=== PATIENT | male | born 1960 | race Caucasian/White ===

== ENCOUNTER 2020-04-09 17:35 | Emergency (ER) | payer MEDICAID, SELFPAY ==
[2020-04-09] VITALS (19 sets, daily range): BP systolic 176–209; BP diastolic 94–117; PULSE 63–83; RESP 14–18; TEMP 36.7; O2SAT 92–100; BMI 28.8
[2020-04-09 17:58] LABS: WBC Urine None Seen (0-5/HPF)
[2020-04-09 18:09] LABS: Bacteria Urine Few (2-10); Culture Indicated Urine Cult Not Indicated; RBC Urine 1-5/HPF (0-5/HPF)
[2020-04-09] MEDS: ONDANSETRON 4 MG/2 ML INJ (18:10)
[2020-04-09] MEDS: SODIUM CHLORIDE 0.9% 1,000 ML 1000 ML IV (18:10)
[2020-04-09] MEDS: MORPHINE 4 MG/ML INJ (18:10)
--- NOTE | 2020-04-09 18:11 | DI.CT.S_ITS ---
PROCEDURE: CT ANGIO CHEST ABDOMEN PELVIS INDICATIONS: severe sudden flank pain TECHNIQUE: Precontrast 5 mm thick sections acquired from the lung apices to the iliac crests. After the administration of intravenous contrast, 2.5 mm thick sections again acquired from the lung apices to the iliac crests. Maximum intensity projection (MIP) oblique sagittal and coronal reformats were then acquired. For radiation dose reduction, the following was used: automated exposure control. COMPARISON: None. FINDINGS: Image quality: Excellent. AORTA: The thoracal abdominal aorta demonstrates no evidence of dissection, aneurysm, no significant stenosis. Mild diffuse plaque is present. CHEST: Lungs and pleura: No acute airspace opacities. There is an 8mm diameter nodule within the left lower lobe posteriorly. There is a ground glass nodule within the right upper lobe anterolaterally measuring 9 mm. Mild right basal atelectasis. No pleural effusions or pneumothorax. Central and peripheral airways are patent and normal in caliber. Mediastinum: Heart size is normal. No pericardial effusion. No mediastinal or hilar adenopathy by size criteria. Central pulmonary arteries are normal in size. Esophagus is normal in caliber. No hiatal hernias. Bones and chest wall: No axillary adenopathy by size criteria. Thyroid gland is within normal limits. No suspicious bony lesions. No vertebral body compression fractures. ABDOMEN: Vasculature: Celiac trunk and mesenteric arteries are patent. Renal arteries are also patent. Solid organs: Liver is normal in size and enhancement. Gallbladder is within normal limits. Biliary system is non dilated. Pancreas enhances normally. Spleen is normal in size and enhancement. No adrenal nodules. B mild right renal enlargement. Severe right perinephric fat stranding. Left kidney is within normal limits. No left hydronephrosis no left ureteral dilatation. Mild right hydronephrosis and right ureteral dilatation. 4 mm diameter distal right ureteral calculus with Hounsfield units of 304. Peritoneum and bowel: No free fluid or air. Bowel loops are normal in caliber and wall thickness. Nodes and vessels: No retroperitoneal or mesenteric adenopathy by size criteria. Inferior vena cava is normal in morphology. Miscellaneous: No ventral hernias. PELVIS: Genitourinary: Bladder wall thickness is normal. Miscellaneous: No inguinal hernias or adenopathy. No ventral hernias. Bones: No suspicious bony lesions. No vertebral body compression fractures. IMPRESSION: 1. Right distal ureteral calculus associated with mild right hydronephrosis. 2. Bilateral pulmonary nodules; followup is recommended as below. 3. Otherwise negative CT angiography of the chest, abdomen, and pelvis. Fleischner Society criteria for SOLID lung nodule followup. Nodule size (mm)Low-risk patientHigh-risk patient<6 (single or multiple)No routine followup.Optional CT at 12 months. 6-8 (single or multiple)CT at 6-12 months, then optional CT at 18-24 mo.CT at 6-12 months, then CT at 18-24 months. >8 (single)CT, PET-CT, or biopsy at 3 months. Same as for low-risk pts. >8 (multiple)CT at 3-6 months, then optional CT at 18-24 mo.CT at 3-6 months, then CT at 18-24 months. Fleischner Society criteria for SUB-SOLID lung nodule followup. Solitary pure ground-glass nodules<6 mm (ground glass or part solid)No followup needed. 6 mm or larger (ground glass)CT at 6-12 months to confirm persistence, then CT every 2 years until 5 years.6 mm or larger (part solid)CT at 3-6 months to confirm persistence, then annual CT until 5 years if unchanged and solid component remains <6 mm. Multiple sub-solid nodules<6 mmCT at 3-6 months, then CT consider at 2 & 4 years for high risk patients. [address] at 3-6 months. Subsequent management based on most suspicious lesions. Recommendations do not apply to lung cancer screening, patients with immunosuppression, or patients with known primary cancer. Dictated by: Terri Lyle M.D. on 04/09/2020 at 19:53 Approved by: Terri Lyle M.D. on 04/09/2020 at 19:57
[2020-04-09 18:16] LABS: Add Manual Diff / Slide Review NO; Basophils Absolute Auto 0 /uL (0-100); Basophils Percent Auto 0.4 % (0-2); Eosinophils Absolute Auto 0 /uL (0-450); Eosinophils Percent Auto 0.2 % (2-4); Hematocrit 44.5 % (41-53); Hemoglobin 15.3 g/dL (13.5-17.5); Lymphocytes Absolute Auto 1300 /uL (1100-4500); Lymphocytes Percent Auto 11.5 % (25-40); Mean Corpuscular HGB Conc 34.5 % (30-36); Mean Corpuscular Hemoglobin 30.7 PG (26-34); Monocytes Absolute Auto 600 /uL (0-900); Monocytes Percent Auto 5.6 % (3-14); Neutrophils Absolute Auto 9400 /uL (1500-7000); Neutrophils Percent Auto 82.3 % (50-75); Platelet Count 313 X10^3/uL (150-400); Red Blood Cell Count 4.99 X10^6/uL (4.5-5.9); Red Cell Distribution Width 13.2 % (11.6-14.8); White Blood Cell Count 11.4 X10^3/uL (4.5-11.0)
[2020-04-09 18:19] LABS: Lactate (Lactic Acid) 1.3 mmol/L (0.7-2.1)
[2020-04-09 18:20] LABS: Alanine Aminotransferase 36 IU/L (<50); Albumin 4.8 g/dL (3.5-5.0); Albumin Globulin Ratio 1.5 (1.0-2.8); Alkaline Phosphatase 78 U/L (38-126); Aspartate Aminotransferase 39 IU/L (17-59); BUN Creatinine Ratio 22.7 (6-22); Bilirubin Total 0.8 mg/dL (0.2-1.3); Blood Urea Nitrogen 27 mg/dL (9-20); Calcium 9.8 mg/dL (8.4-10.2); Carbon Dioxide 28 mmol/L (22-32); Chloride 100 mmol/L (98-107); Estimated Glomerular Filt Rate > 60.0 mL/min (>60); Globulin 3.2 g/dL (1.7-4.1); Glucose 125 mg/dL (70-100); HEMOLYSIS < 15 (0-50); Potassium 3.4 mmol/L (3.4-5.1); Sodium 136 mmol/L (137-145)
[2020-04-09] MEDS: HYDROMORPHONE 1 MG INJ IV ×2 (18:39→19:45)
[2020-04-09 18:45] LABS: Procalcitonin < 0.05 ng/mL (<0.5)
--- NOTE | 2020-04-09 19:42 | ED.ABDPAIN ---
HPI - Abdominal Pain <PRANAV Olivares - Last Filed: 04/09/20 21:09> General Chief Complaint: Urogenital-Male Stated Complaint: Possible Kidney Stone Time Seen by Provider: 04/09/20 17:53 Source: patient Mode of arrival: Family Vehicle Limitations: no limitations History of Present Illness HPI narrative: The patient is a 59-year-old male nonsmoker with history of Guillain-[place] as well as hypertension who presents with a chief complaint of severe sudden onset flank pain in his right side. He states it started all of a sudden, then the pain brought him to his knees. He complains of nausea, no vomiting. No fevers, no dysuria urgency or frequency. He denies any personal history of kidney stones and denies any familial history of kidney stones. He denies any hematuria he states the pain is on his left flank radiating around to his right stomach. He denies any abdominal surgical history. He does have a history of hypertension takes losartan. He did have Guillain[place] after a flu shot. The patient saw a nurse on 1 of the [facility], who gave him 5 mg of oxycodone. Then he took a fairly over, and felt nauseous on the [place] and walking up from the [place]. Related Data Home Medications Medication Instructions Recorded Confirmed losartan 50 mg PO DAILY 04/09/20 04/09/20 Previous Rx's Medication Instructions Recorded hydrocodone-acetaminophen [[place]] 1 tab PO Q4-6H PRN #10 tab 04/09/20 ketorolac 10 mg PO TID PRN #10 tab 04/09/20 ondansetron 4 mg PO Q6H PRN #20 tab 04/09/20 tamsulosin 0.4 mg PO DAILY #7 cap 04/09/20 Allergies Allergy/AdvReac Type Severity Reaction Status Date / Time No Known Drug Allergies Allergy Verified 04/09/20 18:03 Review of Systems <PRANAV Olivares - Last Filed: 04/09/20 21:09> Review of Systems Narrative: GENERAL: Denies chills, fatigue, malaise, fever, sweats. HEENT: Denies sinus pain, ear pain, sore throat, difficulty swallowing, dizziness. RESPIRATORY: Denies dyspnea, cough, wheezing, hemoptysis, sputum. CARDIOVASCULAR: Denies chest pain, palpitations, orthopnea, edema, GASTROINTESTINAL: See HPI : Denies dysuria, frequency, incontinence, hematuria, urinary retention. MUSCULOSKELETAL: denies weakness, joint pain, or bony pain SKIN: Denies rash, skin lesions, or other NEUROLOGIC: Denies weakness, headache, numbness, change in speech, confusion, seizures, incoordination. PSYCHIATRIC: No concerning psychosocial issues. 12 point review of systems is negative except for those stated above Patient History <HANNAH Olivares - Last Filed: 04/09/20 21:09> Social History Smoking Status: Never smoker Smoking Status: Never smoker alcohol intake frequency: 3 or more drinks per day Substance Use Type: does not use Exam <PRANAV Olivares - Last Filed: 04/09/20 21:09> Narrative Exam Narrative: GENERAL: This is a well-nourished, well-developed patient, appears uncomfortable HEAD: Atraumatic. Normocephalic. No temporal or scalp tenderness. EYES: Pupils equal round and reactive. Extraocular motions intact. No scleral icterus. No injection or drainage. ENT: Nose without bleeding, purulent drainage or septal hematoma. Throat without erythema, tonsillar hypertrophy or exudate. Uvula midline. Airway patent. NECK: Trachea midline. No JVD or lymphadenopathy. Supple, nontender, no meningeal signs. CARDIOVASCULAR: Regular rate and rhythm RESPIRATORY: Clear to auscultation. Breath sounds equal bilaterally. No wheezes, rales, or rhonchi. No cough. No increased respiratory effort. No accessory muscle use. GASTROINTESTINAL: Abdomen soft, diffusely tender, nondistended. No hepato-splenomegaly, or palpable masses. No guarding pain to palpation right lower quadrants. Active bowel sounds all 4 quadrants. EXTREMITIES: No clubbing, cyanosis, or edema. No joint tenderness, effusion, or edema noted. BACK: Nontender without deformity or crepitance. CVA tenderness right side. NEURO: AOx3. SKIN: No rash or erythema on visible skin Initial Vital Signs Initial Vital Signs: Vital Signs Temperature 98.1 F 04/09/20 17:58 Pulse Rate 63 04/09/20 17:58 Respiratory Rate 18 04/09/20 17:58 Blood Pressure 205/117 H 04/09/20 17:58 Pulse Oximetry 100 04/09/20 17:58 <Carlos Eduardo Gagnon DO - Last Filed: 04/09/20 21:18> Initial Vital Signs Initial Vital Signs: Vital Signs Temperature 98.1 F 04/09/20 17:58 Pulse Rate 63 04/09/20 17:58 Respiratory Rate 18 04/09/20 17:58 Blood Pressure 205/117 H 04/09/20 17:58 Pulse Oximetry 100 04/09/20 17:58 Scores <PRANAV Olivares - Last Filed: 04/09/20 21:09> GCS Aust[place] coma scale eye opening: Spontaneous Aust[place] coma scale verbal response: Orientated Aust[place] coma scale motor response: Obey commands Austen coma scale total score: 15 Course <PRANAV Olivares - Last Filed: 04/09/20 21:09> Orders Ordered: ED Orders 04/09/20 17:43 Urine Microscopic Stat 04/09/20 17:52 Complete Blood Count AUTO DIFF Stat Comprehensive Metabolic Panel Stat Lactate (Lactic Acid) Stat Procalcitonin Stat 04/09/20 18:11 CT angio chest abdomen pelvis Stat Discontinued Medications Hydrocodone Bitart/Acetaminophen (Vicodin 5/325 Prepack) 1 bottle MISC SEEINSTR ONE Stop: 04/09/20 20:25 Last Admin: 04/09/20 21:13 Dose: 1 bottle Documented by: PACHECO Hydromorphone HCl (Dilaudid) 1 mg IV NOW ONE Stop: 04/09/20 18:33 Last Admin: 04/09/20 18:39 Dose: 1 mg Documented by: DAVID Hydromorphone HCl (Dilaudid) 1 mg IV NOW ONE Stop: 04/09/20 19:42 Last Admin: 04/09/20 19:45 Dose: 1 mg Documented by: GERMAN Sodium Chloride (Normal Saline 0.9%) 1,000 mls @ 1,000 mls/hr IV BOLUS ONE Stop: 04/09/20 19:04 Last Infusion: 04/09/20 19:05 Dose: 0 mls/hr Documented by: Admin: 04/09/20 18:10 Dose: 1,000 mls/hr Documented by: DAVID Ketorolac Tromethamine (Toradol) 30 mg IV NOW ONE Stop: 04/09/20 20:02 Last Admin: 04/09/20 20:14 Dose: 30 mg Documented by: DAVID Ketorolac Tromethamine (Toradol 10mg Prepack) 1 bottle MISC SEEINSTR ONE Stop: 04/09/20 20:26 Last Admin: 04/09/20 21:13 Dose: 1 bottle Documented by: PACHECO Lidocaine (Lidoderm) 1 each TOP NOW ONE Stop: 04/09/20 19:42 Last Admin: 04/09/20 19:46 Dose: 1 each Documented by: GERMAN Ondansetron HCl (Zofran Odt Prepack) 1 bottle MISC SEEINSTR ONE Stop: 04/09/20 20:25 Last Admin: 04/09/20 21:13 Dose: 1 bottle Documented by: PACHECO Tamsulosin HCl (Flomax) 0.4 mg PO NOW ONE Stop: 04/09/20 20:25 Last Admin: 04/09/20 21:13 Dose: 0.4 mg Documented by: PACHECO Vital Signs Vital signs: Vital Signs - 8 hr 04/09/20 17:58 04/09/20 18:14 04/09/20 18:15 Temperature 98.1 F Pulse Rate 63 75 77 Respiratory Rate 18 Blood Pressure 205/117 H Pulse Oximetry 100 97 93 04/09/20 18:18 04/09/20 18:30 04/09/20 18:37 Temperature Pulse Rate 82 81 Respiratory Rate Blood Pressure 196/103 H 206/106 H Pulse Oximetry 100 100 04/09/20 18:45 04/09/20 19:00 04/09/20 19:22 Temperature Pulse Rate 75 74 Respiratory Rate Blood Pressure 192/111 H 192/101 H Pulse Oximetry 99 99 100 04/09/20 19:30 04/09/20 19:31 04/09/20 19:45 Temperature Pulse Rate 82 83 78 Respiratory Rate Blood Pressure 209/101 H 209/106 H Pulse Oximetry 100 99 99 04/09/20 20:00 04/09/20 20:15 04/09/20 20:30 Temperature Pulse Rate 78 80 80 Respiratory Rate Blood Pressure 186/102 H 176/98 H Pulse Oximetry 98 97 93 04/09/20 20:31 04/09/20 20:45 04/09/20 21:00 Temperature Pulse Rate 82 Respiratory Rate Blood Pressure 179/94 H 176/99 H Pulse Oximetry 92 94 04/09/20 21:06 Temperature Pulse Rate 83 Respiratory Rate 14 Blood Pressure Pulse Oximetry 96 <Carlos Eduardo Gagnon, DO - Last Filed: 04/09/20 21:18> Orders Ordered: ED Orders 04/09/20 17:43 Urine Microscopic Stat 04/09/20 17:52 Complete Blood Count AUTO DIFF Stat Comprehensive Metabolic Panel Stat Lactate (Lactic Acid) Stat Procalcitonin Stat 04/09/20 18:11 CT angio chest abdomen pelvis Stat Discontinued Medications Hydrocodone Bitart/Acetaminophen (Vicodin 5/325 Prepack) 1 bottle MISC SEEINSTR ONE Stop: 04/09/20 20:25 Last Admin: 04/09/20 21:13 Dose: 1 bottle Documented by: PACHECO Hydromorphone HCl (Dilaudid) 1 mg IV NOW ONE Stop: 04/09/20 18:33 Last Admin: 04/09/20 18:39 Dose: 1 mg Documented by: DAVID Hydromorphone HCl (Dilaudid) 1 mg IV NOW ONE Stop: 04/09/20 19:42 Last Admin: 04/09/20 19:45 Dose: 1 mg Documented by: GERMAN Sodium Chloride (Normal Saline 0.9%) 1,000 mls @ 1,000 mls/hr IV BOLUS ONE Stop: 04/09/20 19:04 Last Infusion: 04/09/20 19:05 Dose: 0 mls/hr Documented by: Admin: 04/09/20 18:10 Dose: 1,000 mls/hr Documented by: DAVID Ketorolac Tromethamine (Toradol) 30 mg IV NOW ONE Stop: 04/09/20 20:02 Last Admin: 04/09/20 20:14 Dose: 30 mg Documented by: DAVID Ketorolac Tromethamine (Toradol 10mg Prepack) 1 bottle MISC SEEINSTR ONE Stop: 04/09/20 20:26 Last Admin: 04/09/20 21:13 Dose: 1 bottle Documented by: PACHECO Lidocaine (Lidoderm) 1 each TOP NOW ONE Stop: 04/09/20 19:42 Last Admin: 04/09/20 19:46 Dose: 1 each Documented by: GERMAN Ondansetron HCl (Zofran Odt Prepack) 1 bottle MISC SEEINSTR ONE Stop: 04/09/20 20:25 Last Admin: 04/09/20 21:13 Dose: 1 bottle Documented by: PACHECO Tamsulosin HCl (Flomax) 0.4 mg PO NOW ONE Stop: 04/09/20 20:25 Last Admin: 04/09/20 21:13 Dose: 0.4 mg Documented by: PACHECO Vital Signs Vital signs: Vital Signs - 8 hr 04/09/20 17:58 04/09/20 18:14 04/09/20 18:15 Temperature 98.1 F Pulse Rate 63 75 77 Respiratory Rate 18 Blood Pressure 205/117 H Pulse Oximetry 100 97 93 04/09/20 18:18 04/09/20 18:30 04/09/20 18:37 Temperature Pulse Rate 82 81 Respiratory Rate Blood Pressure 196/103 H 206/106 H Pulse Oximetry 100 100 04/09/20 18:45 04/09/20 19:00 04/09/20 19:22 Temperature Pulse Rate 75 74 Respiratory Rate Blood Pressure 192/111 H 192/101 H Pulse Oximetry 99 99 100 04/09/20 19:30 04/09/20 19:31 04/09/20 19:45 Temperature Pulse Rate 82 83 78 Respiratory Rate Blood Pressure 209/101 H 209/106 H Pulse Oximetry 100 99 99 04/09/20 20:00 04/09/20 20:15 04/09/20 20:30 Temperature Pulse Rate 78 80 80 Respiratory Rate Blood Pressure 186/102 H 176/98 H Pulse Oximetry 98 97 93 04/09/20 20:31 04/09/20 20:45 04/09/20 21:00 Temperature Pulse Rate 82 Respiratory Rate Blood Pressure 179/94 H 176/99 H Pulse Oximetry 92 94 04/09/20 21:06 Temperature Pulse Rate 83 Respiratory Rate 14 Blood Pressure Pulse Oximetry 96 MDM - Abdominal Pain <TK Olivares-VERO - Last Filed: 04/09/20 21:09> Lab Data Result diagrams: 04/09/20 17:52 04/09/20 17:52 Labs: Lab Results 04/09/20 04/09/20 04/09/20 Range/Units 17:43 17:52 17:52 WBC 11.4 H (4.5-11.0) X10^3/uL RBC 4.99 (4.5-5.9) X10^6/uL Hgb 15.3 (13.5-17.5) g/dL Hct 44.5 (41-53) % MCV 89.0 (80-100) fL MCH 30.7 (26-34) PG MCHC 34.5 (30-36) % RDW 13.2 (11.6-14.8) % Plt Count 313 (150-400) X10^3/uL Neut % (Auto) 82.3 H (50-75) % Lymph % (Auto) 11.5 L (25-40) % [place] % (Auto) 5.6 (3-14) % Eos % (Auto) 0.2 L (2-4) % Baso % (Auto) 0.4 (0-2) % Neut # (Auto) 9400 H (5268-3560) /uL Lymph # (Auto) 1300 (1804-2274) /uL [place] # (Auto) 600 (0-900) /uL Eos # (Auto) 0 (0-450) /uL Baso # (Auto) 0 (0-100) /uL Sodium (137-145) mmol/L Potassium (3.4-5.1) mmol/L Chloride (98-107) mmol/L Carbon Dioxide (22-32) mmol/L BUN (9-20) mg/dL Creatinine (0.66-1.25) mg/dL Estimated GFR (>60) mL/min BUN/Creatinine Ratio (6-22) Glucose (70-100) mg/dL Lactate (0.7-2.1) mmol/L Calcium (8.4-10.2) mg/dL Total Bilirubin (0.2-1.3) mg/dL AST (17-59) IU/L ALT (<50) IU/L Alkaline Phosphatase (38-126) U/L Total Protein (6.3-8.2) g/dL Albumin (3.5-5.0) g/dL Globulin (1.7-4.1) g/dL Albumin/Globulin Ratio (1.0-2.8) Procalcitonin < 0.05 (<0.5) ng/mL Urine RBC 1-5/hpf (0-5/HPF) Urine WBC None seen (0-5/HPF) Urine Bacteria Few (2-10) H (None) Ur Culture Indicated? Cult not indicated 04/09/20 04/09/20 Range/Units 17:52 17:52 WBC (4.5-11.0) X10^3/uL RBC (4.5-5.9) X10^6/uL Hgb (13.5-17.5) g/dL Hct (41-53) % MCV (80-100) fL MCH (26-34) PG MCHC (30-36) % RDW (11.6-14.8) % Plt Count (150-400) X10^3/uL Neut % (Auto) (50-75) % Lymph % (Auto) (25-40) % [place] % (Auto) (3-14) % Eos % (Auto) (2-4) % Baso % (Auto) (0-2) % Neut # (Auto) (1803-0104) /uL Lymph # (Auto) (5477-3824) /uL [place] # (Auto) (0-900) /uL Eos # (Auto) (0-450) /uL Baso # (Auto) (0-100) /uL Sodium 136 L (137-145) mmol/L Potassium 3.4 (3.4-5.1) mmol/L Chloride 100 (98-107) mmol/L Carbon Dioxide 28 (22-32) mmol/L BUN 27 H (9-20) mg/dL Creatinine 1.19 (0.66-1.25) mg/dL Estimated GFR > 60.0 (>60) mL/min BUN/Creatinine Ratio 22.7 H (6-22) Glucose 125 H (70-100) mg/dL Lactate 1.3 (0.7-2.1) mmol/L Calcium 9.8 (8.4-10.2) mg/dL Total Bilirubin 0.8 (0.2-1.3) mg/dL AST 39 (17-59) IU/L ALT 36 (<50) IU/L Alkaline Phosphatase 78 (38-126) U/L Total Protein 8.0 (6.3-8.2) g/dL Albumin 4.8 (3.5-5.0) g/dL Globulin 3.2 (1.7-4.1) g/dL Albumin/Globulin Ratio 1.5 (1.0-2.8) Procalcitonin (<0.5) ng/mL Urine RBC (0-5/HPF) Urine WBC (0-5/HPF) Urine Bacteria (None) Ur Culture Indicated? Point of care testing: Urine Dip Bedside Urine Glucose Negative Bedside Urine Bilirubin - Negative Bedside Urine Ketone - Negative Urine Specific [place] 1.025 Bedside Urine Occult Blood ++ Bedside Urine pH 6.0 Bedside Urine Protein - Negative Bedside Urine Urobilinogen - Negative Bedside Urine Nitrite - Negative Bedside Urine Leukocytes - Negative Esterase Imaging Data CT scan - abdomen/pelvis: Radiologist's Impression: [address] [place] [id number] Scan Report Signed Patient: Cuong Schreiber RMR#: [id number] : 1960Acct:[id number] Age/Sex: 59 / MDate of Service: 04/09/20 Loc: ED Accession Number: [id number] Procedure: CT angio chest abdomen pelvis Ordering Provider: Mojgan Vasquez- PROCEDURE: CT ANGIO CHEST ABDOMEN PELVIS INDICATIONS: severe sudden flank pain TECHNIQUE: Precontrast 5 mm thick sections acquired from the lung apices to the iliac crests. After the administration of intravenous contrast, 2.5 mm thick sections again acquired from the lung apices to the iliac crests. Maximum intensity projection (MIP) oblique sagittal and coronal reformats were then acquired. For radiation dose reduction, the following was used: automated exposure control. COMPARISON: None. FINDINGS: Image quality: Excellent. AORTA: The thoracal abdominal aorta demonstrates no evidence of dissection, aneurysm, no significant stenosis. Mild diffuse plaque is present. CHEST: Lungs and pleura: No acute airspace opacities. There is an 8mm diameter nodule within the left lower lobe posteriorly. There is a ground glass nodule within the right upper lobe anterolaterally measuring 9 mm. Mild right basal atelectasis. No pleural effusions or pneumothorax. Central and peripheral airways are patent and normal in caliber. Mediastinum: Heart size is normal. No pericardial effusion. No mediastinal or hilar adenopathy by size criteria. Central pulmonary arteries are normal in size. Esophagus is normal in caliber. No hiatal hernias. Bones and chest wall: No axillary adenopathy by size criteria. Thyroid gland is within normal limits. No suspicious bony lesions. No vertebral body compression fractures. ABDOMEN: Vasculature: Celiac trunk and mesenteric arteries are patent. Renal arteries are also patent. Solid organs: Liver is normal in size and enhancement. Gallbladder is within normal limits. Biliary system is non dilated. Pancreas enhances normally. Spleen is normal in size and enhancement. No adrenal nodules. B mild right renal enlargement. Severe right perinephric fat stranding. Left kidney is within normal limits. No left hydronephrosis no left ureteral dilatation. Mild right hydronephrosis and right ureteral dilatation. 4 mm diameter distal right ureteral calculus with Hounsfield units of 304. Peritoneum and bowel: No free fluid or air. Bowel loops are normal in caliber and wall thickness. Nodes and vessels: No retroperitoneal or mesenteric adenopathy by size criteria. Inferior vena cava is normal in morphology. Miscellaneous: No ventral hernias. PELVIS: Genitourinary: Bladder wall thickness is normal. Miscellaneous: No inguinal hernias or adenopathy. No ventral hernias. Bones: No suspicious bony lesions. No vertebral body compression fractures. IMPRESSION: 1. Right distal ureteral calculus associated with mild right hydronephrosis. 2. Bilateral pulmonary nodules; followup is recommended as below. 3. Otherwise negative CT angiography of the chest, abdomen, and pelvis. Fleischner Society criteria for SOLID lung nodule followup. Nodule size (mm)Low-risk patientHigh-risk patient<6 (single or multiple)No routine followup.Optional CT at 12 months. 6-8 (single or multiple)CT at 6-12 months, then optional CT at 18-24 mo.CT at 6-12 months, then CT at 18-24 months. >8 (single)CT, PET-CT, or biopsy at 3 months. Same as for low-risk pts. >8 (multiple)CT at 3-6 months, then optional CT at 18-24 mo.CT at 3-6 months, then CT at 18-24 months. Fleischner Society criteria for SUB-SOLID lung nodule followup. Solitary pure ground-glass nodules<6 mm (ground glass or part solid)No followup needed. 6 mm or larger (ground glass)CT at 6-12 months to confirm persistence, then CT every 2 years until 5 years.6 mm or larger (part solid)CT at 3-6 months to confirm persistence, then annual CT until 5 years if unchanged and solid component remains <6 mm. Multiple sub-solid nodules<6 mmCT at 3-6 months, then CT consider at 2 & 4 years for high risk patients. [address] at 3-6 months. Subsequent management based on most suspicious lesions. Recommendations do not apply to lung cancer screening, patients with immunosuppression, or patients with known primary cancer. Dictated by: Terri Lyle M.D. on 04/09/2020 at 19:53 Approved by: Terri Lyle M.D. on 04/09/2020 at 19:57 MDM Narrative Medical decision making narrative: The patient is a 59-year-old male with no history of kidney stones who presents with a chief complaint of sudden onset of left-sided flank pain. He is very hypertensive upon arrival, does have a history of hypertension. Given the sudden onset and hypertensive status as well as his lack of history of kidney stones, he was scanned to evaluate for dissection. This came back negative, though the patient is noted to have a 4 mm distal ureteral calculus. He also has bilateral pulmonary nodules, which I discussed with the patient and encouraged follow-up with primary care provider. Patient already has a PCP appointment on the of this month. Patient feels much improved after the above-stated therapies. Pre packs were given as all pharmacies are closed. I discussed at length the risks of straining his urine, follow-up with primary care provider, coming back to the emergency department for any acute concerns. Discussed monitoring for signs and symptoms of infection including dysuria urgency or frequency. Discussed monitoring for fever, inability keep down fluids. Patient has tolerated hydrocodone in the past and states he does well with it. Discussed monitoring for constipation etcetera. Patient have no questions or concerns upon discharge and state understanding of return precautions as well as follow-up care. <Carlos Eduardo Gagnon, - Last Filed: 04/09/20 21:18> Lab Data Labs: Lab Results 04/09/20 04/09/20 04/09/20 Range/Units 17:43 17:52 17:52 WBC 11.4 H (4.5-11.0) X10^3/uL RBC 4.99 (4.5-5.9) X10^6/uL Hgb 15.3 (13.5-17.5) g/dL Hct 44.5 (41-53) % MCV 89.0 (80-100) fL MCH 30.7 (26-34) PG MCHC 34.5 (30-36) % RDW 13.2 (11.6-14.8) % Plt Count 313 (150-400) X10^3/uL Neut % (Auto) 82.3 H (50-75) % Lymph % (Auto) 11.5 L (25-40) % [place] % (Auto) 5.6 (3-14) % Eos % (Auto) 0.2 L (2-4) % Baso % (Auto) 0.4 (0-2) % Neut # (Auto) 9400 H (5969-7987) /uL Lymph # (Auto) 1300 (2477-9830) /uL [place] # (Auto) 600 (0-900) /uL Eos # (Auto) 0 (0-450) /uL Baso # (Auto) 0 (0-100) /uL Sodium (137-145) mmol/L Potassium (3.4-5.1) mmol/L Chloride (98-107) mmol/L Carbon Dioxide (22-32) mmol/L BUN (9-20) mg/dL Creatinine (0.66-1.25) mg/dL Estimated GFR (>60) mL/min BUN/Creatinine Ratio (6-22) Glucose (70-100) mg/dL Lactate (0.7-2.1) mmol/L Calcium (8.4-10.2) mg/dL Total Bilirubin (0.2-1.3) mg/dL AST (17-59) IU/L ALT (<50) IU/L Alkaline Phosphatase (38-126) U/L Total Protein (6.3-8.2) g/dL Albumin (3.5-5.0) g/dL Globulin (1.7-4.1) g/dL Albumin/Globulin Ratio (1.0-2.8) Procalcitonin < 0.05 (<0.5) ng/mL Urine RBC 1-5/hpf (0-5/HPF) Urine WBC None seen (0-5/HPF) Urine Bacteria Few (2-10) H (None) Ur Culture Indicated? Cult not indicated 04/09/20 04/09/20 Range/Units 17:52 17:52 WBC (4.5-11.0) X10^3/uL RBC (4.5-5.9) X10^6/uL Hgb (13.5-17.5) g/dL Hct (41-53) % MCV (80-100) fL MCH (26-34) PG MCHC (30-36) % RDW (11.6-14.8) % Plt Count (150-400) X10^3/uL Neut % (Auto) (50-75) % Lymph % (Auto) (25-40) % [place] % (Auto) (3-14) % Eos % (Auto) (2-4) % Baso % (Auto) (0-2) % Neut # (Auto) (0797-1090) /uL Lymph # (Auto) (6933-6860) /uL [place] # (Auto) (0-900) /uL Eos # (Auto) (0-450) /uL Baso # (Auto) (0-100) /uL Sodium 136 L (137-145) mmol/L Potassium 3.4 (3.4-5.1) mmol/L Chloride 100 (98-107) mmol/L Carbon Dioxide 28 (22-32) mmol/L BUN 27 H (9-20) mg/dL Creatinine 1.19 (0.66-1.25) mg/dL Estimated GFR > 60.0 (>60) mL/min BUN/Creatinine Ratio 22.7 H (6-22) Glucose 125 H (70-100) mg/dL Lactate 1.3 (0.7-2.1) mmol/L Calcium 9.8 (8.4-10.2) mg/dL Total Bilirubin 0.8 (0.2-1.3) mg/dL AST 39 (17-59) IU/L ALT 36 (<50) IU/L Alkaline Phosphatase 78 (38-126) U/L Total Protein 8.0 (6.3-8.2) g/dL Albumin 4.8 (3.5-5.0) g/dL Globulin 3.2 (1.7-4.1) g/dL Albumin/Globulin Ratio 1.5 (1.0-2.8) Procalcitonin (<0.5) ng/mL Urine RBC (0-5/HPF) Urine WBC (0-5/HPF) Urine Bacteria (None) Ur Culture Indicated? Point of care testing: Urine Dip Bedside Urine Glucose Negative Bedside Urine Bilirubin - Negative Bedside Urine Ketone - Negative Urine Specific [place] 1.025 Bedside Urine Occult Blood ++ Bedside Urine pH 6.0 Bedside Urine Protein - Negative Bedside Urine Urobilinogen - Negative Bedside Urine Nitrite - Negative Bedside Urine Leukocytes - Negative Esterase Discharge Plan Departure Patient Disposition: Home Clinical Impression: Right ureteral calculus, Incidental pulmonary nodule Instructions: DI for Kidney Stones, DI for Pulmonary Nodule Activity Restrictions/Additional Instructions: Thank you for trusting us with your care today. We found a 4 mm stone in your right ureter, which is causing your pain. Please follow-up with primary care provider in the next few days as scheduled. I [facility] for [facility] to [facility]. This includes hydrocodone with acetaminophen for pain, ondansetron for nausea, ketorolac for pain and tamsulosin to help you urinate. Please monitor for signs of infection including burning when you urinate, fever etcetera. Please follow up if these occur. I have given you a prescription of Toradol. This is an NSAID. Do not combine it with other NSAIDs such as Aleve or ibuprofen. I suggest taking it with some food, as it can irritate your stomach. I have given you a prescription of a narcotic for pain. Be aware that this can be constipating and sedating. I encouraged taking with a stool softener, pushing fluids and fiber. Do not take and drive, operate heavy machinery, etc. Do not combine it with any other sedating substances such as alcohol. The combination of narcotics and alcohol and/or other sedatives can be lethal. As discussed, we also noted some pulmonary nodules. Please follow-up with primary care provider regarding this. You may need further imaging. Prescriptions: New tamsulosin 0.4 mg capsule 0.4 mg PO DAILY Qty: 7 RF: 0 ketorolac 10 mg tablet 10 mg PO TID PRN (Reason: pain) Qty: 10 RF: 0 hydrocodone-acetaminophen [[place]] 5-325 mg tablet 1 tab PO Q4-6H PRN (Reason: pain) Qty: 10 RF: 0 ondansetron 4 mg tablet,disintegrating 4 mg PO Q6H PRN (Reason: nausea and vomiting) Qty: 20 RF: 0 No Action losartan 50 mg tablet 50 mg PO DAILY RF: 0 Referrals: Erik Zhou DO [Primary Care Provider] - <Carlos Eduardo Gagnon DO - Last Filed: 04/09/20 21:18> Cosign ED Attending Cosignature Attestation: Dr Gagnon Co-Sign Statement: I was available for consultation during this patient's emergency department visit. This chart is signed by myself for administrative purposes only. I did not have direct contact with this patient during this visit. They were seen independently by the APC.
[2020-04-09] MEDS: LIDOCAINE PATCH 1 EACH ADH..PATCH TOP (19:46)
[2020-04-09] MEDS: KETOROLAC 60 MG/2 ML VIAL 30 MG IV (20:14)
[2020-04-09] MEDS: ONDANSETRON 4 MG ODT PREPACK 1 BOTTLE MISC (21:13)
[2020-04-09] MEDS: HYDROCODONE/ACET 5/325 PREPACK 1 BOTTLE MISC (21:13)
[2020-04-09] MEDS: KETOROLAC 10MG PREPACK 1 BOTTLE MISC (21:13)
[2020-04-09] MEDS: TAMSULOSIN 0.4 MG CAPSULE PO (21:13)
== END 2020-04-09 21:31 | disposition home or self-care (01) ==
PROVIDERS: Emergency Provider Nurse Practitioner Family; PCP Student in an Organized Health Care Education/Training Program
DX: N20.1 Calculus of ureter (principal); R91.1 Solitary pulmonary nodule; I10 Essential (primary) hypertension; R11.0 Nausea
CPT/HCPCS: 36415; 71275; 74174; 80053; 81003; 81015; 83605; 84145; 85025; 96361; 96374; 96375; 96376; 99284; J1170; J1885; J2270; J2405; Q9967